=== PATIENT | male | born 1975 | race Caucasian/White ===

== ENCOUNTER 2021-04-21 15:21 | Emergency (ER) | payer OTHER ==
[~2021-04-21] VITALS: Ht 190.5 cm; Wt 116.2 kg
[2021-04-21] MEDS ORDERED: ASPIRIN 325 MG TABLET PO ONE (16:15)
--- NOTE | 2021-04-21 16:16 | PHYS DOC ---
Past History Past Surgical History: Appendectomy Additional Past Surgical Histo: PRK, hernia Alcohol Use: Occasionally Social History Narrative: pt uses smokeless tobacco Adult General Chief Complaint Chief Complaint: CHEST PAIN HPI HPI Patient is a 45-year-old male presenting to the ED for chest pain. States the pain began a week ago and has persisted, thus his presentation to the ED today. Pain is constant, aching, dull in nature and does not radiate. It is a pinpoint tenderness reproducible with palpation and worsened by certain body motions and deep inspiration. It is located on the left second rib roughly 2 cm from the sternum, approximately 2 to 3 cm in diameter. patient describes chronic back pain to the left of T1 and indicates it feels like the anterior reflection of his pinpoint back tenderness. Patient leads an active lifestyle, both aerobic and weightlifting activities, and reports new mild shortness of breath while walking upstairs. Denies fevers, chills, lower extremity edema. Patient is fully immunized to Covid and has received his booster. Review of Systems Review of Systems Constitutional: Denies fever or chills [] Eyes: Denies change in visual acuity, redness, or eye pain [] HENT: Denies nasal congestion or sore throat [] Respiratory: Denies cough. Reports mild SOB with going up stairs [] Cardiovascular: No additional information not addressed in HPI [] GI: Denies abdominal pain, nausea, vomiting, bloody stools or diarrhea [] : Denies dysuria or hematuria [] Musculoskeletal: Reports chronic back pain, denies joint pain [] Integument: Denies rash or skin lesions [] Neurologic: Denies headache, focal weakness or sensory changes [] Endocrine: Denies polyuria or polydipsia [] All other systems were reviewed and found to be within normal limits, except as documented in this note. Family History Family History Significant family cardiovascular history Allergies Allergies Allergies Coded Allergies Type Severity Reaction Last Updated Verified No Known Drug Allergies 04/21/21 No Physical Exam Physical Exam Constitutional: Well developed, well nourished, no acute distress, non-toxic appearance. [] HENT: Normocephalic, atraumatic, bilateral external ears normal, oropharynx moist, no oral exudates, nose normal. [] Eyes: PERRLA, EOMI, conjunctiva normal, no discharge. [] Neck: Normal range of motion, no tenderness, supple, no stridor. [] Cardiovascular:Heart rate regular rhythm, no murmur [] Lungs & Thorax: Bilateral breath sounds clear to auscultation. Pinpoint tenderness located on left chest, overlying second rib roughly 2 cm from the sternum. [] Abdomen: Bowel sounds normal, soft, no tenderness, no masses, no pulsatile masses. [] Skin: Warm, dry, no erythema, no rash. [] Back: Mild chronic tenderness to left upper back, no CVA tenderness. [] Extremities: No tenderness, no cyanosis, no clubbing, ROM intact, no edema. [] Neurologic: Alert and oriented X 3, normal motor function, normal sensory function, no focal deficits noted. [] Psychologic: Affect normal, judgement normal, mood normal. [] Current Patient Data Vital Signs Vital Signs Date Time Temp Pulse Resp B/P (MAP) Pulse Ox O2 Delivery O2 Flow Rate FiO2 04/21/21 15:30 98.4 75 18 160/108 (125) 97 Room Air Lab Results Laboratory Tests Test 04/21/21 16:15 White Blood Count 7.1 x10^3/uL Red Blood Count 4.71 x10^6/uL Hemoglobin 13.7 g/dL Hematocrit 40.5 % Mean Corpuscular Volume 86 fL Mean Corpuscular Hemoglobin 29 pg Mean Corpuscular Hemoglobin Concent 34 g/dL Red Cell Distribution Width 13.6 % Platelet Count 203 x10^3/uL Neutrophils (%) (Auto) 58 % Lymphocytes (%) (Auto) 29 % Monocytes (%) (Auto) 10 % Eosinophils (%) (Auto) 2 % Basophils (%) (Auto) 1 % Neutrophils # (Auto) 4.1 x10^3uL Lymphocytes # (Auto) 2.1 x10^3/uL Monocytes # (Auto) 0.7 x10^3/uL Eosinophils # (Auto) 0.1 x10^3/uL Basophils # (Auto) 0.1 x10^3/uL Sodium Level 143 mmol/L Potassium Level 4.2 mmol/L Chloride Level 106 mmol/L Carbon Dioxide Level 26 mmol/L Anion Gap 11 Blood Urea Nitrogen 22 mg/dL Creatinine 0.9 mg/dL Estimated GFR (Cockcroft-Gault) 90.4 Glucose Level 86 mg/dL Calcium Level 8.9 mg/dL Current Medications Medications (Trade) Dose Ordered Sig/Ana Maria Route PRN Reason Start Time Stop Time Status Last Admin Dose Admin Aspirin (Kari Aspirin) 325 mg 1X ONCE PO 04/21/21 16:15 04/21/21 16:16 DC 04/21/21 16:23 EKG EKG EKG ordered and interpreted by myself 1600 hrs. as sinus rhythm at 69 bpm, prolonged OH at 216 otherwise unremarkable intervals, no axis deviation, no acute ischemic findings, no STEMI Radiology/Procedures Radiology/Procedures XR CHEST 1V INDICATION: chest pain COMPARISON STUDY: None. FINDINGS: Lungs: Normal lung volume. No pulmonary mass or consolidation. The tracheobronchial tree and hilar structures are normal. Pleura: No pleural effusion or pneumothorax. Heart and Mediastinum: The cardiomediastinal silhouette is normal. The great vessels of the thorax are normal. Bones and Soft Tissues: The bones and soft tissues are within normal limits. IMPRESSION: No acute cardiopulmonary process. Electronically signed by: Alvarez Conley MD (04/21/2021 4:30 PM) [facility] Heart Score C/O Chest Pain: Yes HEART Score for Chest Pain: HEART Score for Chest Pain Response (Comments) Value History Slighlty/Non-Suspicious 0 ECG Normal 0 Age >45 - < 65 1 Risk Factors 1 or 2 Risk Factors 1 Troponin < Normal Limit 0 Total 2 Risk Factors: Risk Factors: DM, Current or recent (<one month) smoker, HTN, HLP, family history of CAD, obesity. Risk Scores: Risk Factors: DM, Current or recent (<one month) smoker, HTN, HLP, family history of CAD, obesity. Course & Med Decision Making Course & Med Decision Making ABCs unremarkable. I disclosed entirety of ER findings and discussed most likely diagnosis of atypical chest pain, likely musculoskeletal in nature given reproducible status. Other diagnoses were discussed with patient such as pulmonary embolism, ACS and other potentially life-threatening diagnoses but all deemed less likely causes of patient's presentation. Supportive care practices that include stretching, deep tissue massage and NSAIDs and/or Tylenol for pain recommended. Plan of care discussed at length with need for close outpatient follow-up to review today's ER visit stressed. Strict return precautions were also discussed at length with good understanding verbalized by patient. Patient voiced understanding and agreement with the plan. Patient knows to come back for repeat evaluation if concerning signs or symptoms present prior to outpatient follow-up. Hemodynamically stable, ambulatory and well-appearing at time of disposition. Dragon Disclaimer Dragon Disclaimer This electronic medical record was generated, in whole or in part, using a voice recognition dictation system. Departure Departure: Impression: Primary Impression: Atypical chest pain Disposition: HOME / SELF CARE / HOMELESS Condition: STABLE Referrals: ADEEL SANDERSON MD (PCP) Additional Instructions: You were seen for chest pain. Your workup did not show any acute abnormalities today, but does not indicate that you do not have underlying cardiovascular disease. You do need to follow up with your primary doctor and potentially a fire sprinkler fitter for further evaluation and treatment. As discussed, you are likely suffering from reproducible chest pain that is caused from either muscle spasms in your back and pectoralis muscles and/or costochondritis. Regardless, both issues should resolve with heat application, continued stretching and range of motion exercises with use of Tylenol and/or ibuprofen as needed for pain control. You should return to the ED if you develop worsening chest pain, shortness of breath, fever, abnormal sweating, leg swelling, or any other new or concerning symptoms. XAVIER AGUILAR DO Apr 21, 2021 16:16
[2021-04-21 16:25] VITALS: BP 151/101
--- NOTE | 2021-04-21 16:33 | RAD ---
XR CHEST 1V INDICATION: chest pain COMPARISON STUDY: None. FINDINGS: Lungs: Normal lung volume. No pulmonary mass or consolidation. The tracheobronchial tree and hilar st ructures are normal. Pleura: No pleural effusion or pneumothorax. Heart and Mediastinum: The cardiomediastinal silhouette is normal. The great vessels of the thorax ar e normal. Bones and Soft Tissues: The bones and soft tissues are within normal limits. IMPRESSION: No acute cardiopulmonary process. Electronically signed by: Alvarez Conley MD (04/21/2021 4:30 PM) [facility]
[2021-04-21 16:38] LABS: BASO # 0.1 x10^3/uL (0.0-0.2); BASO % 1 % (0-3); EOS # 0.1 x10^3/uL (0.0-0.7); EOS % 2 % (0-3); HEMATOCRIT 40.5 % (39.0-53.0); HEMOGLOBIN 13.7 g/dL (13.0-17.5); LYMPH # 2.1 x10^3/uL (1.0-4.8); LYMPH % 29 % (24-48); MEAN CORPUSCULAR HEMOGLOBIN 29 pg (25-35); MEAN CORPUSCULAR HGB CONC 34 g/dL (31-37); MEAN CORPUSCULAR VOLUME 86 fL (79-100); MONO # 0.7 x10^3/uL (0.0-1.1); MONO % 10 % (0-9); NEUT # 4.1 x10^3uL (1.8-7.7); NEUT % 58 % (31-73); PLATELET COUNT 203 x10^3/uL (140-400); RED BLOOD COUNT 4.71 x10^6/uL (4.30-5.70); RED CELL DISTRIBUTION WIDTH 13.6 % (11.5-14.5); WHITE BLOOD COUNT 7.1 x10^3/uL (4.0-11.0)
--- NOTE | 2021-04-21 16:44 | EKG ---
[address] [address] Test Date: 2021-04-21 Test Time: 15:56:22 Pat Name: SAMINA MARS Department: Room: Gender: M Procedure Tech: TB : 1975 Requested By: XAVIER AGUILAR Order Number: [id number] Reading MD: Jin Lewis MD Measurements Intervals [place] Rate: 69 P: 49 DE: 216 QRS: 1 QRSD: 94 T: 6 QT: 394 QTc: 424 Interpretive Statements SINUS RHYTHM Electronically Signed On 04-23-2021 20:44:25 BENCH REPAIR TECHNICIAN by Jin Lewis MD
[2021-04-21 16:58] LABS: CALCIUM 8.9 mg/dL (8.5-10.1); CREATININE 0.9 mg/dL (0.7-1.3); GFR 90.4; POTASSIUM 4.2 mmol/L (3.5-5.1)
== END 2021-04-21 17:16 | disposition home or self-care (01) ==
LOC: ER 15:21
DX: R07.89 Other chest pain (principal); G89.29 Other chronic pain; M54.6 Pain in thoracic spine; R06.02 Shortness of breath; Z90.89 Acquired absence of other organs
CPT/HCPCS: 36415; 71045; 80048; 84484; 85025; 93005; 99285